=== PATIENT | female | born 1975 ===

== ENCOUNTER 2017-08-05 18:22 | Emergency (ER) | payer OTHER ==
[2017-08-05 19:27] VITALS: BP 134/87; PULSE 85; RESP 16; TEMP 98.4; O2SAT 100
--- NOTE | 2017-08-05 20:41 | ED PDOC ---
HPI: CCC, URI, Sore Throat Time Seen by Provider: 08/05/17 20:13 Chief Complaint (Nursing): Flu-like Symptoms Chief Complaint (Provider): cough History Per: Patient History/Exam Limitations: no limitations Onset/Duration Of Symptoms: Days (1 month), Waxing/Waning Current Symptoms Are (Timing): Still Present Additional History Per: Patient Additional Complaint(s): 42 y/o female presents for evaluation of persistent cough x 10 days. Patient states cough started initially 6 weeks ago; was prescribed symbicort, clindamycin, and medrol dose sarah for asthmatic bronchitis. Patient states she was feeling better until 10 days ago when cough presented again. Patient follow back up with her doctor last and was prescribed Levaquin, and another Medrol dose sarah but cough persists. Denies fever, headache, dizziness, bodyaches, chest pain, shortness of breath, palpitations, abdominal pain, leg swelling, recent travel, sick contacts. Patient had chest xray 1 week ago which was normal. Past Medical History Reviewed: Historical Data, Nursing Documentation, Vital Signs Vital Signs: Last Vital Signs Temp 98.4 F 08/05/17 19:24 Pulse 85 08/05/17 19:24 Resp 16 08/05/17 19:24 BP 134/87 08/05/17 19:24 Pulse Ox 100 08/05/17 20:41 - Medical History PMH: Asthma, Bronchitis - Surgical History Other surgeries: tubal ligation - Family History Family History: States: No Known Family Hx - Home Medications Home Medications: Ambulatory Orders Medication Instructions Recorded Fluticasone Nasal [Flonase] 1 actuation NS BID #1 bottle 08/05/17 Promethazine/Codeine 5 ml PO Q8 PRN #60 ml 08/05/17 [Phenergan/Codeine Oral Syrup] - Allergies Allergies/Adverse Reactions: Allergies Allergy/AdvReac Type Severity Reaction Status Date / Time No Known Allergies Allergy Verified 08/05/17 19:24 Review of Systems ROS Statement: Except As Marked, All Systems Reviewed And Found Negative Respiratory: Positive for: Cough Physical Exam - Reviewed Nursing Documentation Reviewed: Yes Vital Signs Reviewed: Yes - Physical Exam Appears: Positive for: Well, Non-toxic, No Acute Distress Head Exam: Positive for: ATRAUMATIC, NORMAL INSPECTION, NORMOCEPHALIC Skin: Positive for: Normal Color Eye Exam: Positive for: Normal appearance ENT: Positive for: Normal ENT Inspection Cardiovascular/Chest: Positive for: Regular Rate, Rhythm Respiratory: Positive for: Normal Breath Sounds Gastrointestinal/Abdominal: Positive for: Normal Exam Back: Positive for: Normal Inspection Extremity: Positive for: Normal ROM Neurologic/Psych: Positive for: Alert, Oriented - ECG O2 Sat by Pulse Oximetry: 100 - Progress ED Course And Treament: Patient educated on findings, discharged with rx Flonase, Promethazine with codeine. Advised to continue nebulizers/inhalers as directed/needed. Follow up PMD 2-3 days. Return precautions given. Disposition - Clinical Impression Clinical Impression: Cough - Patient ED Disposition Is Patient to be Admitted: No Counseled Patient/Family Regarding: Studies Performed, Diagnosis, Need For Followup, Rx Given - Disposition Disposition: Routine/Home Disposition Time: 20:43 Condition: IMPROVED Prescriptions: Fluticasone Nasal [Flonase] 1 actuation NS BID #1 bottle Promethazine/Codeine [Phenergan/Codeine Oral Syrup] 5 ml PO Q8 PRN #60 ml PRN Reason: Cough Instructions: Bronchospasm (ED) Forms: [employer] ([place])
== END 2017-08-05 21:00 | disposition home or self-care (01) ==
LOC: H.ER 18:22
DX: R05 Cough (principal)